=== PATIENT | female | born 2000 | race Caucasian/White ===

== ENCOUNTER 2022-09-02 18:47 | Emergency (ER) | payer OTHER ==
[~2022-09-02] VITALS: Ht 165.1 cm; Wt 72.6 kg
[2022-09-02 19:17] LABS: BILIRUBIN Negative (Negative); BLOOD Negative (Negative); CLARITY Cloudy (Clear); COLOR Yellow (Yellow); GLUCOSE Negative (Negative); KETONE Negative (Negative); LEUKO ESTERASE Negative (Negative); NITRITE Negative (Negative); SPECIFIC GRAVITY 1.015 (1.001-1.030); UROBILINOGEN 0.2 E.U./dl (0.0-1.0)
[2022-09-02 19:17] LABS: BASO % 0.4 % (0.0-1.0); EOS # 0.1 10*3/uL (0.0-0.4); HEMATOCRIT 37.1 % (37.0-47.0); LYMPH # 1.6 10*3/uL (1.3-4.4); LYMPH % 18.8 % (27.0-41.0); MEAN CELL VOLUME 99.7 fl (81.0-99.0); MEAN CORPUSCULAR HGB 32.8 pg (27.0-31.0); MEAN CORPUSCULAR HGB CONC 32.9 g/dl (33.0-37.0); MEAN PLATELET VOLUME 10.4 fl (9.6-12.3); MONO # 0.5 10*3/uL (0.1-1.0); MONO % 6.5 % (3.0-9.0); NEUT # 6.1 10*3/uL (2.3-7.9); NEUT % 72.9 % (47.0-73.0); PLATELET COUNT AUTOMATED 243 10*3/uL (130-400); RED BLOOD COUNT 3.72 10*6/uL (4.10-5.10); RED CELL DISTRI WIDTH 13.5 % (0-14.5); WHITE BLOOD COUNT 8.3 10*3/uL (4.8-10.8)
[2022-09-02 19:25] LABS: URINE AMPHETAMINES Negative (1000ng/ml); URINE BARBITURATES Negative (200ng/ml); URINE BENZODIAZEPINES Negative (200ng/ml); URINE CANNABINOIDS (THC) Negative (50ng/ml); URINE COCAINE Negative (300ng/ml); URINE METHADONE Negative (300ng/ml); URINE OPIATES Negative (300ng/ml); URINE PHENCYCLIDINE Negative (25ng/ml)
[2022-09-02 19:48] LABS: BACTERIA 1+
[2022-09-02 19:56] LABS: ALKALINE PHOSPHATASE 59 U/L (46-116); BUN 6 mg/dl (9-23); CHLORIDE 105 mmol/L (98-107); POTASSIUM 3.8 mmol/L (3.4-5.1); SGPT/ALT 16 U/L (10-49); TOTAL PROTEIN 6.9 gm/dL (6.0-8.0)
== END 2022-09-02 20:47 | disposition home or self-care (01) ==
LOC: ED 18:47
PROVIDERS: Internal Medicine
DX: O26.893 Other specified pregnancy related conditions, third trimester (principal); R56.9 Unspecified convulsions; D75.89 Other specified diseases of blood and blood-forming organs; E44.1 Mild protein-calorie malnutrition; Z3A.29 29 weeks gestation of pregnancy; Z68.1 Body mass index [BMI] 19.9 or less, adult

== ENCOUNTER 2024-04-21 20:29 | Emergency (ER) | payer OTHER ==
[~2024-04-21] VITALS: Ht 165.1 cm; Wt 65.8 kg
[2024-04-21] MEDS ORDERED: LEVETIRACETAM IN NACL (ISO-OS) 100 ML IV ONE (20:45)
[2024-04-21 20:55] LABS: BILIRUBIN Negative (Negative); BLOOD 3+ (Negative); CLARITY Cloudy (Clear); COLOR Yellow (Yellow); GLUCOSE Negative (Negative); KETONE Trace (Negative); LEUKO ESTERASE Negative (Negative); NITRITE Negative (Negative); UROBILINOGEN 0.2 E.U./dl (0.0-1.0)
[2024-04-21] MEDS ORDERED: Ondansetron Hydrochloride 4 MG/2 ML VIAL IV ONE (20:55)
[2024-04-21] MEDS ORDERED: ACETAMINOPHEN 325 MG TAB PO ONE (20:55)
[2024-04-21 21:03] LABS: URINE AMPHETAMINES Negative (1000ng/ml); URINE BARBITURATES Negative (200ng/ml); URINE BENZODIAZEPINES Negative (200ng/ml); URINE CANNABINOIDS (THC) Positive (50ng/ml); URINE COCAINE Negative (300ng/ml); URINE METHADONE Negative (300ng/ml); URINE OPIATES Negative (300ng/ml); URINE PHENCYCLIDINE Negative (25ng/ml)
[2024-04-21 21:07] LABS: BACTERIA TRACE; EPITHELIAL CELLS TNTC
[2024-04-21 21:30] LABS: BASO % 0.4 % (0.0-1.0); EOS % 0.3 % (1.0-4.0); HEMATOCRIT 40.5 % (37.0-47.0); MEAN CELL VOLUME 99.5 fl (81.0-99.0); MEAN CORPUSCULAR HGB 32.7 pg (27.0-31.0); MEAN CORPUSCULAR HGB CONC 32.8 g/dl (33.0-37.0); MEAN PLATELET VOLUME 10.3 fl (9.6-12.3); MONO # 0.3 10*3/uL (0.1-1.0); MONO % 4.5 % (3.0-9.0); NEUT # 5.3 10*3/uL (2.3-7.9); NEUT % 74.1 % (47.0-73.0); PLATELET COUNT AUTOMATED 218 10*3/uL (130-400); RED BLOOD COUNT 4.07 10*6/uL (4.10-5.10); RED CELL DISTRI WIDTH 11.8 % (0-14.5); WHITE BLOOD COUNT 7.1 10*3/uL (4.8-10.8)
[2024-04-21] MEDS ORDERED: Prochlorperazine Edisylate 10 MG/2 ML VIAL IV ONE (21:35)
[2024-04-21] MEDS ORDERED: Promethazine Hydrochloride 25 MG/ML VIAL IV ONE (21:35)
[2024-04-21 21:47] LABS: BUN 8 mg/dl (9-23); CHLORIDE 104 mmol/L (98-107); POTASSIUM 3.3 mmol/L (3.4-5.1)
[2024-04-21 21:48] LABS: ETHYL ALCOHOL < 3.0 mg/dl (<3)
[2024-04-21] MEDS ORDERED: SODIUM CHLORIDE 0.9% 500 ML IV ONE (22:15)
[2024-04-22] MEDS ORDERED: POTASSIUM CHLORIDE 20 MEQ TAB PO ONE (00:25)
[2024-04-22] MEDS ORDERED: KEPPRA1000 MG PO (00:43)
== END 2024-04-22 01:11 | disposition home or self-care (01) ==
LOC: ED 20:29
PROVIDERS: Internal Medicine
DX: R56.9 Unspecified convulsions (principal); Z91.199 Patient's noncompliance with other medical treatment and regimen due to unspecified reason; Z79.899 Other long term (current) drug therapy

== ENCOUNTER 2024-08-07 18:29 | Emergency (ER) | payer OTHER ==
[~2024-08-07] VITALS: Wt 59.0 kg
[~2024-08-07 18:29] MED LIST: KEPPRA1000 MG PO
[2024-08-07] MEDS ORDERED: MORPHINE Sulfate 2 MG/ML SYR IV ONE (18:55)
[2024-08-07] MEDS ORDERED: Ondansetron Hydrochloride 4 MG/2 ML VIAL IV ONE (18:55)
[2024-08-07] MEDS ORDERED: SODIUM CHLORIDE 0.9% 1,000 ML IV ONE ×2 (18:55→21:00)
[2024-08-07 19:16] LABS: BASO # 0.1 10*3/uL (0.0-0.1); BASO % 0.4 % (0.0-1.0); EOS # 0.1 10*3/uL (0.0-0.4); HEMATOCRIT 40.9 % (37.0-47.0); MEAN CELL VOLUME 99.5 fl (81.0-99.0); MEAN CORPUSCULAR HGB 33.1 pg (27.0-31.0); MEAN CORPUSCULAR HGB CONC 33.3 g/dl (33.0-37.0); MEAN PLATELET VOLUME 10.4 fl (9.6-12.3); MONO # 0.6 10*3/uL (0.1-1.0); MONO % 4.9 % (3.0-9.0); NEUT % 70.5 % (47.0-73.0); PLATELET COUNT AUTOMATED 276 10*3/uL (130-400); RED BLOOD COUNT 4.11 10*6/uL (4.10-5.10); WHITE BLOOD COUNT 11.3 10*3/uL (4.8-10.8)
[2024-08-07 19:40] LABS: BUN 9 mg/dl (9-23); CHLORIDE 102 mmol/L (98-107); POTASSIUM 3.5 mmol/L (3.4-5.1)
[2024-08-07] MEDS ORDERED: HYDROmorphone Hydrochloride 1 MG/ML SYR IV ONE ×2 (19:55→21:55)
[2024-08-07] MEDS ORDERED: PERCOCET 5-3251 EACH PO (23:05)
[2024-08-07] MEDS ORDERED: Ondansetron4 MG PO (23:05)
[2024-08-07] MEDS ORDERED: Ondansetron Hydrochloride 4 MG TAB SL ONE (23:10)
[2024-08-07] MEDS ORDERED: Acetaminophen/Oxycodone 5 MG/325 MG TABLET PO ONE (23:10)
== END 2024-08-07 23:35 | disposition home or self-care (01) ==
LOC: ED 18:29
PROVIDERS: Nurse Practitioner Family
DX: O03.9 Complete or unspecified spontaneous abortion without complication (principal); Z3A.00 Weeks of gestation of pregnancy not specified

== ENCOUNTER 2024-12-27 12:07 | Emergency (ER) | payer OTHER ==
[~2024-12-27] VITALS: Ht 165.1 cm; Wt 63.5 kg
[~2024-12-27 12:07] MED LIST changes: +Ondansetron4 MG PO; +PERCOCET 5-3251 EACH PO
[2024-12-27] MEDS ORDERED: SODIUM CHLORIDE 0.9% 1,000 ML IV ONE (12:40)
[2024-12-27] MEDS ORDERED: LORazepam 1 MG TAB PO ONE (12:40)
[2024-12-27 12:48] LABS: BASO # 0.1 10*3/uL (0.0-0.1); BASO % 0.6 % (0.0-1.0); EOS # 0.0 10*3/uL (0.0-0.4); EOS % 0.1 % (1.0-4.0); MEAN CELL VOLUME 99.8 fl (81.0-99.0); MEAN CORPUSCULAR HGB 32.9 pg (27.0-31.0); MEAN PLATELET VOLUME 10.6 fl (9.6-12.3); MONO # 0.6 10*3/uL (0.1-1.0); MONO % 7.0 % (3.0-9.0); NEUT # 7.2 10*3/uL (2.3-7.9); NEUT % 84.0 % (47.0-73.0); NUCLEATED RED BLOOD CELL 0.0 % (0.0-0.0); NUCLEATED RED BLOOD CELL 0.0 10*3/uL (0.0-0.0); PLATELET COUNT AUTOMATED 234 10*3/uL (130-400); RED CELL DISTRI WIDTH 12.2 % (0-14.5)
[2024-12-27 13:09] LABS: BUN 6 mg/dl (9-23)
[2024-12-27 13:14] LABS: B-hCG (QUALITATIVE) NEGATIVE (NEGATIVE)
[2024-12-27] MEDS ORDERED: KEPPRA1000 MG PO (13:22)
[2024-12-27] MEDS ORDERED: MELOXICAM15 MG PO (13:45)
== END 2024-12-27 13:55 | disposition home or self-care (01) ==
LOC: ED 12:07
PROVIDERS: Emergency Medicine
DX: G40.909 Epilepsy, unspecified, not intractable, without status epilepticus (principal); M54.6 Pain in thoracic spine; Z79.899 Other long term (current) drug therapy